=== PATIENT | female | born 1995 | race Caucasian/White ===

== ENCOUNTER 2017-09-08 21:30 | Inpatient (IN) | payer OTHER ==
[~2017-09-08] VITALS: Ht 160 cm; Wt 65.3 kg
[2017-09-08] MEDS ORDERED: BRE5 PO (22:59)
[2017-09-08] MEDS ORDERED: FERR-252 PO (22:59)
[2017-09-08] MEDS ORDERED: PREN-546 PO (22:59)
[2017-09-08] MEDS ORDERED: TRA200 PO (22:59)
[2017-09-08] MEDS ORDERED: LACTATED RINGERS 1,000 ML IV SCH (23:00)
[2017-09-08] MEDS ORDERED: TERBUTALINE 1 MG/ML VIAL SUBQ SCH (23:00)
[2017-09-08] MEDS ORDERED: NALBUPHINE 10 MG/ML AMP IVP PRN (23:00)
[2017-09-08] MEDS ORDERED: LABETALOL 100 MG TAB ONE (23:17)
[2017-09-08] MEDS ORDERED: TERBUTALINE 1 MG/ML VIAL SUBQ ONE (23:18)
[2017-09-09 00:19] LABS: APPEARANCE,URINE CLEAR (CLEAR); BILIRUBIN,URINE NEGATIVE (NEGATIVE); BLOOD, URINE NEGATIVE (NEGATIVE); COLOR,URINE YELLOW (YELLOW); LEUKOCYTE ESTERASE ,URINE NEGATIVE (NEGATIVE); NITRITE, URINE NEGATIVE (NEGATIVE); PH,URINE 6.5 (5.0-9.0); UGLUCOSE 3+ (NEGATIVE)
[2017-09-09 01:06] LABS: RBC,URINE NONE SEEN /HPF (0-5); WBC,URINE NONE SEEN /HPF (0-5)
[2017-09-09] MEDS ORDERED: NALBUPHINE 10 MG/ML AMP ONE (03:45)
[2017-09-09] MEDS: TERBUTALINE 2.5 MG TAB PO SCH ×2 (06:03→12:04)
[2017-09-09] MEDS ORDERED: TERBUTALINE 2.5 MG TAB ONE ×2 (06:04→12:06)
--- NOTE | 2017-09-09 08:11 | NUR ---
PATIENT HAS BEEN SCREENED AND CATEGORIZED LOW NUTRITION RISK. PATIENT WILL BE SEEN WITHIN 7 DAYS OF ADMISSION. 09/15/[address]
[2017-09-09] MEDS ORDERED: LABETALOL 100 MG TAB PO SCH (09:00)
[2017-09-09] MEDS ORDERED: LABETALOL 100 MG TAB ONE (09:17)
[2017-09-09] MEDS ORDERED: AMPICILLIN 2,000 MG in NACL 0.9% 100 ML IV SCH (13:48)
== END 2017-09-09 13:55 | disposition home or self-care (01) | DRG 566 ==
LOC: MLD 21:30 → OBSVTOIN 09-09 12:04
PROVIDERS: ADMIT Obstetrics & Gynecology; ATTEND Obstetrics & Gynecology
DX: O26.893 Other specified pregnancy related conditions, third trimester (principal); Z3A.00 Weeks of gestation of pregnancy not specified
CPT/HCPCS: G0378 ×15; 76815; 81001; C1758; J2300; J3105; J7120; Q0092

== ENCOUNTER 2017-10-01 19:15 | Inpatient (IN) | payer OTHER ==
[~2017-10-01] VITALS: Ht 157.5 cm; Wt 115.2 kg
[~2017-10-01 19:15] MED LIST: BRE5 PO; FERR-252 PO; PREN-546 PO; TRA200 PO
[2017-10-01 20:10] VITALS: BP 123/72
[2017-10-01 20:38] LABS: BASOPHILS % (AUTO) 0.3 % (0.0-2.0); EOSINOPHILS % (AUTO) 0.2 % (0.0-4.0); HEMOGLOBIN 13.7 g/dL (12.0-16.0); LYMPHOCYTES # (AUTO) 1.5 K/uL (2.5-16.5); LYMPHOCYTES % (AUTO) 13.9 % (20.5-51.1); MEAN CORPUSCULAR HEMOGLOBIN 32 pg (27-31); MEAN CORPUSCULAR HGB CONC 34 g/dL (33-37); MEAN CORPUSCULAR VOLUME 94.6 fL (80-94); MONOCYTES # (AUTO) 0.8 K/uL (0.8-1.0); MONOCYTES % (AUTO) 7.9 % (1.7-9.3); NEUTROPHILS # (AUTO) 8.1 K/uL (1.8-7.7); NEUTROPHILS % (AUTO) 77.7 % (42.2-75.2); PLATELET COUNT (AUTO) 172 K/uL (140-450); RED BLOOD CELL COUNT(AUTO) 4.23 MIL/uL (4.20-5.40); RED CELL DISTRIBUTION WIDTH 12.8 % (11.6-13.7); WHITE BLOOD COUNT (AUTO) 10.5 K/uL (4.5-11.0)
[2017-10-01 20:59] LABS: ALBUMIN 2.9 g/dL (3.4-5.0); ANION GAP 14.1 (8-16); CARBON DIOXIDE 21.7 mmol/L (21-32); CREATININE 0.6 mg/dL (0.6-1.3); POTASSIUM 3.8 mmol/L (3.5-5.1); PROTHROMBIN TIME 9.4 secs (10.8-13.4); TOTAL BILIRUBIN 0.2 mg/dL (0.0-1.0)
[2017-10-01] MEDS ORDERED: NALBUPHINE 10 MG/ML AMP IVP ONE (22:00)
[2017-10-01] MEDS ORDERED: TERBUTALINE 1 MG/ML VIAL SUBQ ONE (22:12)
[2017-10-01] MEDS: TERBUTALINE 1 MG/ML VIAL SUBQ SCH ×2 (22:21→23:19)
[2017-10-01] MEDS: LACTATED RINGERS 1,000 ML IV SCH (22:30)
[2017-10-01 23:46] LABS: APPEARANCE,URINE CLEAR (CLEAR); BILIRUBIN,URINE NEGATIVE (NEGATIVE); BLOOD, URINE 1+ (NEGATIVE); COLOR,URINE YELLOW (YELLOW); LEUKOCYTE ESTERASE ,URINE NEGATIVE (NEGATIVE); NITRITE, URINE NEGATIVE (NEGATIVE); UGLUCOSE NEGATIVE (NEGATIVE)
[2017-10-02 00:04] LABS: RBC,URINE 11-20 (MOD) /HPF (0-5); WBC,URINE 0-5 (RARE) /HPF (0-5)
[2017-10-02 00:05] LABS: CALCIUM OXALATE CRYSTALS,UR 0-10 /HPF (None Seen)
[2017-10-02] MEDS ORDERED: NALBUPHINE 10 MG/ML AMP ONE (00:57)
[2017-10-02] MEDS ORDERED: PROMETHAZINE 25 MG/ML VIAL ONE (00:58)
[2017-10-02] MEDS ORDERED: PROMETHAZINE 25 MG/ML VIAL IVP SCH (01:30)
[2017-10-02] MEDS ORDERED: TERBUTALINE 2.5 MG TAB ONE ×3 (02:47→07:04)
[2017-10-02] MEDS: TERBUTALINE 2.5 MG TAB PO SCH ×2 (02:56→06:57)
[2017-10-02] MEDS: LACTATED RINGERS 1,000 ML IV SCH (05:59)
--- NOTE | 2017-10-02 08:41 | NUR ---
PATIENT HAS BEEN SCREENED AND CATEGORIZED LOW NUTRITION RISK. PATIENT WILL BE SEEN WITHIN 7 DAYS OF ADMISSION. 10/08/[address]
[2017-10-02] MEDS ORDERED: LABETALOL 100 MG TAB PO SCH (11:00)
[2017-10-02] MEDS ORDERED: LABETALOL 100 MG TAB ONE (11:27)
== END 2017-10-02 15:15 | disposition home or self-care (01) | DRG 566 ==
LOC: MLD 19:15 → OBSVTOIN 20:10
PROVIDERS: ADMIT Obstetrics & Gynecology; ATTEND Obstetrics & Gynecology
DX: O26.893 Other specified pregnancy related conditions, third trimester (principal); O24.419 Gestational diabetes mellitus in pregnancy, unspecified control; O99.820 Streptococcus B carrier state complicating pregnancy; O13.3 Gestational [pregnancy-induced] hypertension without significant proteinuria, third trimester; R25.2 Cramp and spasm; Z3A.00 Weeks of gestation of pregnancy not specified
CPT/HCPCS: 36415; 76815; 80053; 81001; 85025; 85379; 85384; 85610; 85730; C1758; G0378; J2300; J2550; J3105; J7120; Q0092

== ENCOUNTER 2017-10-04 20:47 | Inpatient (IN) | payer OTHER ==
[~2017-10-04] VITALS: Ht 160 cm; Wt 68.5 kg
[~2017-10-04 20:47] MED LIST changes: -BRE5 PO
[2017-10-04 21:12] VITALS: BP 140/84
[2017-10-04] MEDS ORDERED: LABETALOL 200 MG TAB PO SCH (21:30)
[2017-10-04] MEDS ORDERED: NALBUPHINE 10 MG/ML AMP IVP ONE (21:30)
[2017-10-04] MEDS ORDERED: LABETALOL 200 MG TAB ONE (21:38)
[2017-10-04] MEDS ORDERED: NALBUPHINE 10 MG/ML AMP ONE (21:51)
[2017-10-04] MEDS: LACTATED RINGERS 1,000 ML IV SCH (21:57)
[2017-10-04 22:00] LABS: BASOPHILS % (AUTO) 0.4 % (0.0-2.0); EOSINOPHILS % (AUTO) 0.1 % (0.0-4.0); HEMATOCRIT 38.1 % (36-48); LYMPHOCYTES # (AUTO) 1.3 K/uL (2.5-16.5); LYMPHOCYTES % (AUTO) 10.8 % (20.5-51.1); MEAN CORPUSCULAR HEMOGLOBIN 32 pg (27-31); MEAN CORPUSCULAR HGB CONC 34 g/dL (33-37); MEAN CORPUSCULAR VOLUME 94.6 fL (80-94); MONOCYTES # (AUTO) 0.7 K/uL (0.8-1.0); MONOCYTES % (AUTO) 6.2 % (1.7-9.3); NEUTROPHILS # (AUTO) 9.9 K/uL (1.8-7.7); NEUTROPHILS % (AUTO) 82.5 % (42.2-75.2); PLATELET COUNT (AUTO) 160 K/uL (140-450); RED BLOOD CELL COUNT(AUTO) 4.03 MIL/uL (4.20-5.40); RED CELL DISTRIBUTION WIDTH 12.8 % (11.6-13.7)
[2017-10-04 22:10] LABS: ANION GAP 12.7 (8-16); CARBON DIOXIDE 23.1 mmol/L (21-32); CREATININE 0.5 mg/dL (0.6-1.3); POTASSIUM 3.8 mmol/L (3.5-5.1)
[2017-10-04 22:19] LABS: ALBUMIN 2.8 g/dL (3.4-5.0); PROTHROMBIN TIME 9.1 secs (10.8-13.4); TOTAL BILIRUBIN 0.3 mg/dL (0.0-1.0)
[2017-10-04 22:59] LABS: APPEARANCE,URINE CLEAR (CLEAR); BILIRUBIN,URINE NEGATIVE (NEGATIVE); BLOOD, URINE 1+ (NEGATIVE); COLOR,URINE YELLOW (YELLOW); LEUKOCYTE ESTERASE ,URINE NEGATIVE (NEGATIVE); NITRITE, URINE NEGATIVE (NEGATIVE); UGLUCOSE NEGATIVE (NEGATIVE)
[2017-10-05 01:42] LABS: RBC,URINE 0-5 (RARE) /HPF (0-5); WBC,URINE 0-5 (RARE) /HPF (0-5)
[2017-10-05] MEDS ORDERED: AMPICILLIN 2,000 MG in NACL 0.9% 100 ML IV SCH (03:00)
[2017-10-05] MEDS ORDERED: AMPICILLIN 2,000 MG VIAL ONE (03:16)
[2017-10-05] MEDS: LACTATED RINGERS 1,000 ML IV SCH ×3 (03:45→14:46)
[2017-10-05] MEDS ORDERED: BUPIVACAINE 0.125%/NS PREMIX 250 ML ONE (04:47)
[2017-10-05] MEDS ORDERED: BUPIVACAINE 0.125%/NS PREMIX 250 ML EPI SCH (05:10)
[2017-10-05] MEDS ORDERED: OXYTOCIN 20 UNITS in LACTATED RINGERS 1,000 ML IV SCH ×2 (06:05→20:14)
[2017-10-05] MEDS ORDERED: OXYTOCIN 20 UNITS/LR PREMIX 1,000 ML IV ONE (06:14)
[2017-10-05] MEDS ORDERED: CARBOPROST 250 MCG/ML AMP IM PRN ×2 (07:00→13:17)
[2017-10-05] MEDS ORDERED: METHYLERGONOVINE 0.2 MG/ML AMP IM PRN (07:00)
[2017-10-05] MEDS ORDERED: OXYTOCIN 10 UNITS/ML VIAL IM SCH (07:05)
[2017-10-05] MEDS ORDERED: AMPICILLIN 1,000 MG VIAL ONE ×3 (07:19→15:24)
[2017-10-05] MEDS: AMPICILLIN 1,000 MG in NACL 0.9% 50 ML IV SCH ×3 (07:33→15:28)
[2017-10-05] MEDS: LABETALOL 100 MG TAB PO SCH (09:07)
[2017-10-05] MEDS ORDERED: LABETALOL 100 MG TAB ONE (09:09)
--- NOTE | 2017-10-05 09:11 | NUR ---
PATIENT HAS BEEN SCREENED AND CATEGORIZED LOW NUTRITION RISK. PATIENT WILL BE SEEN WITHIN 7 DAYS OF ADMISSION. 10/11/[address]
[2017-10-05] MEDS ORDERED: LIDOCAINE 2% 1000 MG/50 ML VIAL INJ ONE (09:37)
[2017-10-05] MEDS ORDERED: OXYTOCIN 10 UNITS/ML VIAL ONE (09:38)
[2017-10-05] MEDS ORDERED: ACETAMINOPHEN EXTRA STRENGTH 500 MG TAB PO PRN (11:00)
[2017-10-05] MEDS ORDERED: ACETAMINOPHEN EXTRA STRENGTH 500 MG TAB ONE (11:07)
[2017-10-05] MEDS ORDERED: CARBOPROST 250 MCG/ML AMP IM ONE (19:29)
[2017-10-05] MEDS ORDERED: MISOPROSTOL 100 MCG TAB ONE (19:29)
[2017-10-05] MEDS ORDERED: NALBUPHINE 10 MG/ML AMP ONE (19:38)
[2017-10-05] MEDS ORDERED: MISOPROSTOL 200 MCG TAB RC STA (20:05)
[2017-10-05] MEDS ORDERED: NALBUPHINE 10 MG/ML AMP IVP STA (20:05)
[2017-10-05] MEDS ORDERED: CARBOPROST 250 MCG/ML AMP IM STA (20:05)
[2017-10-05] MEDS ORDERED: ACETAMINOPHEN 325 MG TAB PO PRN (20:15)
[2017-10-05] MEDS ORDERED: MEASLES, MUMPS, AND RUBELLA 1 VIAL SQVAC PRN (20:15)
[2017-10-05] MEDS ORDERED: LABETALOL 100 MG TAB PO SCH (21:00)
[2017-10-06 08:16] LABS: BASOPHILS # (AUTO) 0.1 K/uL (0.00-0.22); BASOPHILS % (AUTO) 0.4 % (0.0-2.0); EOSINOPHILS % (AUTO) 0.1 % (0.0-4.0); HEMATOCRIT 27.8 % (36-48); HEMOGLOBIN 9.7 g/dL (12.0-16.0); LYMPHOCYTES # (AUTO) 1.9 K/uL (2.5-16.5); LYMPHOCYTES % (AUTO) 9.8 % (20.5-51.1); MEAN CORPUSCULAR HEMOGLOBIN 33 pg (27-31); MEAN CORPUSCULAR HGB CONC 35 g/dL (33-37); MEAN CORPUSCULAR VOLUME 95.2 fL (80-94); MONOCYTES # (AUTO) 1.6 K/uL (0.8-1.0); MONOCYTES % (AUTO) 8.3 % (1.7-9.3); NEUTROPHILS # (AUTO) 15.6 K/uL (1.8-7.7); NEUTROPHILS % (AUTO) 81.4 % (42.2-75.2); PLATELET COUNT (AUTO) 147 K/uL (140-450); RED BLOOD CELL COUNT(AUTO) 2.92 MIL/uL (4.20-5.40); RED CELL DISTRIBUTION WIDTH 12.8 % (11.6-13.7); WHITE BLOOD COUNT (AUTO) 19.1 K/uL (4.5-11.0)
[2017-10-06] MEDS: oxyCODONE/APAP 5/325 MG 1 TAB TAB PO PRN (14:23)
[2017-10-06] MEDS ORDERED: KETOROLAC 30 MG/ML VIAL IM PRN (15:00)
[2017-10-06] MEDS: LABETALOL 100 MG TAB PO SCH (21:05)
[2017-10-07] MEDS: LABETALOL 100 MG TAB PO SCH (09:22)
[2017-10-07] MEDS: oxyCODONE/APAP 5/325 MG 1 TAB TAB PO PRN (13:15)
[2017-10-07] MEDS ORDERED: ACET-9800 PO (13:38)
== END 2017-10-07 15:00 | disposition home or self-care (01) | DRG 560 ==
LOC: MLD 20:47 → MFCC 10-05 22:32
PROVIDERS: ADMIT Obstetrics & Gynecology; ATTEND Obstetrics & Gynecology
PROC: 10E0XZZ Delivery of Products of Conception, External Approach (ICD-10-PCS; principal; 2017-10-05)
PROC: 10907ZC Drainage of Amniotic Fluid, Therapeutic from Products of Conception, Via Natural or Artificial Opening (ICD-10-PCS; 2017-10-05)
PROC: 3E0R3BZ Introduction of Anesthetic Agent into Spinal Canal, Percutaneous Approach (ICD-10-PCS; 2017-10-05)
PROC: 00HU33Z Insertion of Infusion Device into Spinal Canal, Percutaneous Approach (ICD-10-PCS; 2017-10-05)
DX: O45.93 Premature separation of placenta, unspecified, third trimester (principal); O69.2XX0 Labor and delivery complicated by other cord entanglement, with compression, not applicable or unspecified; O99.824 Streptococcus B carrier state complicating childbirth; Z37.0 Single live birth; Z28.21 Immunization not carried out because of patient refusal; Z3A.38 38 weeks gestation of pregnancy
CPT/HCPCS: 36415; 51702; 59409; 80053; 81001; 83735; 85025; 85379; 85384; 85610; 85730; 86592; 86886; 86900; 86901; J0290; J2001; J2300; J2590; J3490; J7120

== ENCOUNTER 2017-12-23 22:59 | Emergency (ER) | payer OTHER ==
[~2017-12-23] VITALS: Ht 157.5 cm; Wt 57.7 kg
[~2017-12-23 22:59] MED LIST changes: +ACET-9800 PO
[2017-12-23 23:04] VITALS: BP 134/88
--- NOTE | 2017-12-23 23:12 | NUR ---
PT AMBULATED TO ED [facility]
--- NOTE | 2017-12-23 23:44 | NUR ---
TO ER BED 3
--- NOTE | 2017-12-23 23:55 | NUR ---
22 yo female presents to ED for c/o back pain x1 week. pt states it has gotten worse since it first started to the point she cannot last picker her baby carrier. pt has no pmh. denies allergies @ this time. pt aaox4 walking @ bedside. NSR s1 s2 heard, no edema noted. lungs clear even and unlabored. pt voiding no n/v/d, abd soft non distended. skin intact. will update er md will continue to observe.
[2017-12-24 00:11] LABS: APPEARANCE,URINE CLOUDY (CLEAR); BILIRUBIN,URINE NEGATIVE (NEGATIVE); BLOOD, URINE 1+ (NEGATIVE); COLOR,URINE STRAW (YELLOW); LEUKOCYTE ESTERASE ,URINE 2+ (NEGATIVE); NITRITE, URINE NEGATIVE (NEGATIVE); PH,URINE 7.5 (5.0-9.0); UGLUCOSE NEGATIVE (NEGATIVE)
[2017-12-24 00:12] LABS: RBC,URINE 0-5 (RARE) /HPF (0-5); WBC,URINE 20-60 /HPF (0-5)
[2017-12-24] MEDS ORDERED: KETOROLAC 30 MG/ML VIAL IM ONE (01:00)
[2017-12-24] MEDS ORDERED: HYDROcodone/APAP 5/325 MG 1 TAB TAB PO ONE (01:00)
--- NOTE | 2017-12-24 01:04 | NUR ---
Patient discharged with v/s stable. Written and verbal after care instructions given and explained. Patient alert, oriented and verbalized understanding of instructions. Ambulatory with steady gait. All questions addressed prior to discharge. ID band removed. Patient advised to follow up with PMD. Rx of lidoderm patch, norco, naproxyn given. Patient educated on indication of medication including possible reaction and side effects. Opportunity to ask questions provided and answered.
[2017-12-24 01:05] VITALS: BP 132/81
== END 2017-12-24 01:05 | disposition home or self-care (01) ==
LOC: MED 22:59
DX: M54.42 Lumbago with sciatica, left side (principal); Z79.1 Long term (current) use of non-steroidal anti-inflammatories (NSAID); Z79.899 Other long term (current) drug therapy
CPT/HCPCS: 81001; 81025; 87086; 99284

== ENCOUNTER 2020-01-26 04:08 | Emergency (ER) | payer OTHER ==
--- NOTE | 2020-01-26 04:15 | NUR ---
PATIENT LEFT WITHOUT BEING SEEN BY DR. JIMENEZ. NO FURTHER CARE PROVIDED FOR PATIENT.SHE WANTED ONLY TO KNOW HER VITALS SIGNS,
== END 2020-01-26 04:15 | disposition left against medical advice (07) ==
LOC: MED 04:08
DX: Z53.21 Procedure and treatment not carried out due to patient leaving prior to being seen by health care provider (principal)

== ENCOUNTER 2020-11-08 03:10 | Emergency (ER) | payer OTHER ==
[~2020-11-08] VITALS: Ht 157.5 cm; Wt 65.8 kg
[2020-11-08 03:16] VITALS: BP 148/87
--- NOTE | 2020-11-08 03:19 | NUR ---
TO LOBBY A/W BED AMBULATORY
--- NOTE | 2020-11-08 04:00 | NUR ---
RECEIVED IN BED 11 WITH C/O LOW BACK PAIN. PT TOOK MEDICATION BACKBREAKER AND IS FEELING A LITTLE BETTER.
[2020-11-08] MEDS ORDERED: KETOROLAC 30 MG/ML VIAL IM ONE (04:40)
[2020-11-08] MEDS ORDERED: MORPHINE SULFATE 4 MG/ML SYR IM ONE (04:40)
[2020-11-08] MEDS ORDERED: DICL100G5 TP (05:13)
[2020-11-08] MEDS ORDERED: IBUP-2213 PO (05:13)
[2020-11-08] MEDS ORDERED: LID5T TP (05:13)
[2020-11-08] MEDS ORDERED: ACET-8386 PO (05:13)
--- NOTE | 2020-11-08 05:46 | NUR ---
Patient discharged with v/s stable. Written and verbal after care instructions given and explained. Patient alert, oriented and verbalized understanding of instructions. Ambulatory with steady gait. All questions addressed prior to discharge. ID band removed. Patient advised to follow up with PMD. Rx of HYDROCODONE given. Patient educated on indication of medication including possible reaction and side effects. Opportunity to ask questions provided and answered.
== END 2020-11-08 05:46 | disposition home or self-care (01) ==
LOC: MED 03:10
DX: M54.32 Sciatica, left side (principal)
CPT/HCPCS: 72100; 96372; 99284; J1885; J2270; 81002; 81025

== ENCOUNTER 2021-06-22 13:09 | Emergency (ER) | payer OTHER ==
[~2021-06-22] VITALS: Ht 160 cm; Wt 63.5 kg
[~2021-06-22 13:09] MED LIST changes: +ACET-8386 PO; +DICL100G5 TP; +IBUP-2213 PO; +LID5T TP
[2021-06-22 13:20] VITALS: BP 132/83
--- NOTE | 2021-06-22 16:13 | NUR ---
PT AMBULATED TO ER BED 1
--- NOTE | 2021-06-22 16:31 | NUR ---
26 Y/O FEMALE BIB SELF C/O STABBING BILATERAL LOWER BACK PAIN X 2DAYS 09/25 WHEN SHE LIES DOWN, STATED THAT THEY HAD HEMATURIA 2 WEEKS AGO, DENIES ANY FEVER CHILLS, DYSURIA, DENIES ANY MEDICATION FOR PAIN. PMH; DENIES NKA
--- NOTE | 2021-06-22 17:17 | NUR ---
LAB AT BEDSIDE
[2021-06-22 17:44] LABS: BASOPHILS % (AUTO) 0.3 % (0.0-2.0); EOSINOPHILS % (AUTO) 0.3 % (0.0-4.0); HEMATOCRIT 40.1 % (36-48); HEMOGLOBIN 13.7 g/dL (12.0-16.0); LYMPHOCYTES # (AUTO) 2.7 K/uL (2.5-16.5); LYMPHOCYTES % (AUTO) 27.1 % (20.5-51.1); MEAN CORPUSCULAR HEMOGLOBIN 30 pg (27-31); MEAN CORPUSCULAR HGB CONC 34 g/dL (33-37); MEAN CORPUSCULAR VOLUME 88.5 fL (80-94); MONOCYTES # (AUTO) 0.5 K/uL (0.8-1.0); MONOCYTES % (AUTO) 5.2 % (1.7-9.3); NEUTROPHILS # (AUTO) 6.6 K/uL (1.8-7.7); NEUTROPHILS % (AUTO) 67.1 % (42.2-75.2); PLATELET COUNT (AUTO) 350 K/uL (140-450); RED BLOOD CELL COUNT(AUTO) 4.53 MIL/uL (4.20-5.40); RED CELL DISTRIBUTION WIDTH 12.4 % (11.6-13.7); WHITE BLOOD COUNT (AUTO) 9.8 K/uL (4.8-10.8)
--- NOTE | 2021-06-22 17:56 | NUR ---
OFFERED SANDWICH AND APPLE JUICE TO PT, TOLERATED WELL
[2021-06-22 18:04] LABS: ALBUMIN 4.1 g/dL (3.4-5.0); CARBON DIOXIDE 26.9 mmol/L (21-32); CREATININE 0.5 mg/dL (0.6-1.3); POTASSIUM 3.9 mmol/L (3.5-5.1); TOTAL BILIRUBIN 0.5 mg/dL (0.0-1.0)
--- NOTE | 2021-06-22 18:11 | NUR ---
CALLED [facility] STATED THAT THEY WERE STILL IN L/D AND THAT THEY WOULD BE COMING SOON
--- NOTE | 2021-06-22 18:27 | NUR ---
[facility] AT BEDSIDE
[2021-06-22] MEDS ORDERED: LID5T TP (19:05)
[2021-06-22] MEDS ORDERED: ACET-10509 PO (19:05)
[2021-06-22] MEDS ORDERED: PRETAB PO (19:05)
[2021-06-22 19:30] VITALS: BP 101/76
--- NOTE | 2021-06-22 19:31 | NUR ---
Patient discharged with v/s stable. Written and verbal after care instructions given and explained. Patient alert, oriented and verbalized understanding of instructions. Ambulatory with steady gait. All questions addressed prior to discharge. ID band removed. Patient advised to follow up with PMD. Rx of LIDOCAINE AND VITAMINS given. Patient educated on indication of medication including possible reaction and side effects. Opportunity to ask questions provided and answered.
== END 2021-06-22 19:31 | disposition home or self-care (01) ==
LOC: MED 13:09
DX: O26.891 Other specified pregnancy related conditions, first trimester (principal); M54.50 Low back pain, unspecified; M54.6 Pain in thoracic spine; Z3A.08 8 weeks gestation of pregnancy; Z79.899 Other long term (current) drug therapy; Z79.1 Long term (current) use of non-steroidal anti-inflammatories (NSAID); Z79.891 Long term (current) use of opiate analgesic
CPT/HCPCS: 36415; 76801; 80053; 81025; 84702; 85025; 86886; 86900; 86901; 99284; Q0092

== ENCOUNTER 2021-08-17 04:06 | Emergency (ER) | payer OTHER ==
[~2021-08-17] VITALS: Ht 160 cm; Wt 65.1 kg
[~2021-08-17 04:06] MED LIST changes: +ACET-10509 PO; +PRETAB PO
[2021-08-17 04:13] VITALS: BP 118/45
--- NOTE | 2021-08-17 04:16 | NUR ---
PT TO BED 08.
[2021-08-17] MEDS ORDERED: KETO10TA2 PO (05:08)
[2021-08-17] MEDS ORDERED: CEPH-588 PO (05:08)
--- NOTE | 2021-08-17 05:12 | NUR ---
26 Y/O F BIB SELF FOR LEFT SIDE FLANK PAIN X 5 DAYS. PT HAD MISCARRIAGES WEEKS WHO NOW HAS PAIN ABOVE AND BELOW CHEST PT TOOK E IBRUPROFEN. PT DENIES FEVER, COUGH, SOB, /D/ NAUSEA PMH: SCOLIOSIS Rx: DENIES
--- NOTE | 2021-08-17 05:30 | NUR ---
The patient's care was reviewed and supervised by Susana Barajas RN, RN.
[2021-08-17 05:53] VITALS: BP 120/50
--- NOTE | 2021-08-17 05:54 | NUR ---
Patient discharged with v/s stable. Written and verbal after care instructions given and explained. Patient alert, oriented and verbalized understanding of instructions. Ambulatory with steady gait. All questions addressed prior to discharge. ID band removed. Patient advised to follow up with PMD. Rx of keflex and ketorolac tromethamine given. Patient educated on indication of medication including possible reaction and side effects. Opportunity to ask questions provided and answered. VSS, A/OX4, UNLABORED BREATHING, AND CALM DEMEANOR.
== END 2021-08-17 05:50 | disposition home or self-care (01) ==
LOC: MED 04:06
DX: N39.0 Urinary tract infection, site not specified (principal); M54.50 Low back pain, unspecified
CPT/HCPCS: 81002; 81025; 99283

== ENCOUNTER 2023-05-09 22:54 | Emergency (ER) | payer BC, OTHER ==
[~2023-05-09] VITALS: Ht 160 cm; Wt 61.2 kg
[~2023-05-09 22:54] MED LIST changes: -ACET-8386 PO; +ACET-8905 PO; +CEPH-588 PO; +DICL100G32 TP; -DICL100G5 TP; +KETO10TA2 PO
[2023-05-09 23:00] VITALS: BP 127/85; PULSE 93; RESP 19; TEMP 98.6; O2SAT 97
[2023-05-09] MEDS: NACL 0.9% 1,000 ML IV ONE (23:46)
[2023-05-09 23:49] LABS: BASOPHILS % (AUTO) 0.4 % (0.0-2.0); EOSINOPHILS # (AUTO) 0.1 K/uL (0-0.4); EOSINOPHILS % (AUTO) 0.6 % (0.0-4.0); HEMATOCRIT 38.4 % (36-48); MEAN CORPUSCULAR HEMOGLOBIN 29 pg (27-31); MEAN CORPUSCULAR HGB CONC 34 g/dL (33-37); MEAN CORPUSCULAR VOLUME 85.7 fL (80-94); MONOCYTES # (AUTO) 0.6 K/uL (0.8-1.0); MONOCYTES % (AUTO) 6.3 % (1.7-9.3); NEUTROPHILS # (AUTO) 6.8 K/uL (1.8-7.7); NEUTROPHILS % (AUTO) 71.7 % (42.2-75.2); PLATELET COUNT (AUTO) 358 K/uL (140-450); RED BLOOD CELL COUNT(AUTO) 4.48 MIL/uL (4.20-5.40); RED CELL DISTRIBUTION WIDTH 12.4 % (11.6-13.7); WHITE BLOOD COUNT (AUTO) 9.5 K/uL (4.8-10.8)
[2023-05-09 23:57] LABS: ANION GAP 12.4 (8-16); CALCIUM 9.3 mg/dL (8.5-10.1); CARBON DIOXIDE 29.3 mmol/L (21-32); CREATININE 0.9 mg/dL (0.6-1.3); POTASSIUM 3.7 mmol/L (3.5-5.1)
[2023-05-09] MEDS ORDERED: cefTRIAXone 1,000 MG VIAL ONE (23:59)
[2023-05-10] MEDS ORDERED: LIDOCAINE MPF 1% 5 ML ONE ×2 (00:02→01:14)
[2023-05-10 00:06] LABS: LACTIC ACID 1.6 mmol/L (0.4-2.0)
[2023-05-10 00:14] LABS: ALBUMIN 4.2 g/dL (3.4-5.0); BILIRUBIN,DIRECT 0.1 mg/dL (0.0-0.3); TOTAL BILIRUBIN 0.3 mg/dL (0.0-1.0); TOTAL PROTEIN, SERUM 9.2 g/dL (6.4-8.2)
[2023-05-10] MEDS: KETOROLAC 30 MG/ML VIAL IVP ONE (00:20)
[2023-05-10] MEDS: LIDOCAINE MPF 1% 10 MG/ML VIAL INJ ONE (00:34)
[2023-05-10] MEDS ORDERED: CEPH-588 PO (01:29)
[2023-05-10] MEDS ORDERED: ACET-10509 PO (01:30)
== END 2023-05-10 01:33 | disposition home or self-care (01) ==
LOC: MED 22:54
DX: N61.1 Abscess of the breast and nipple (principal); Z79.899 Other long term (current) drug therapy
CPT/HCPCS: 10060; 36415; 76641; 80048; 80076; 83605; 85025; 87040; 96365; 96375; 99285; J0696; J1885; J2001; J7030; Q0092

== ENCOUNTER 2023-05-11 16:40 | Emergency (ER) | payer BC ==
[~2023-05-11] VITALS: Ht 160 cm; Wt 61.2 kg
[2023-05-11 17:05] VITALS: BP 103/73; PULSE 95; RESP 18; TEMP 97.8; O2SAT 96
== END 2023-05-11 20:06 | disposition home or self-care (01) ==
LOC: MED 16:40
DX: N61.1 Abscess of the breast and nipple (principal); Z48.00 Encounter for change or removal of nonsurgical wound dressing; Z79.899 Other long term (current) drug therapy
CPT/HCPCS: 99281

== ENCOUNTER 2023-05-17 23:42 | Emergency (ER) | payer BC ==
[~2023-05-17] VITALS: Ht 154.9 cm; Wt 61.3 kg
[2023-05-17 23:56] VITALS: BP 118/71; PULSE 90; RESP 16; TEMP 98.4; O2SAT 96
[2023-05-18] MEDS: LIDOCAINE 2% 1000 MG/50 ML VIAL INJ ONE (02:41)
[2023-05-18] MEDS ORDERED: SULF-59 PO (03:11)
[2023-05-18] MEDS: SULFAMETH/TRIMETH DS 800/160MG 1 TAB PO ONE (03:38)
== END 2023-05-18 03:36 | disposition home or self-care (01) ==
LOC: MED 23:42
DX: N61.1 Abscess of the breast and nipple (principal); Z79.899 Other long term (current) drug therapy
CPT/HCPCS: 10060; 99284; J2001